=== PATIENT | male | born 1980 | race African-American/Black ===

== ENCOUNTER 2022-06-26 18:38 | Emergency (ER) | payer MEDICAID ==
[~2022-06-26] VITALS: Ht 175.3 cm; Wt 84.0 kg
[~2022-06-26 18:38] MED LIST: BENZTROPINE MESYLATE; BUSPIRONE; DEPAKOTE; DIVALPROEX; LITHIUM; RISPERDAL
[2022-06-27 01:18] LABS: BASOPHILS % 0.3 % (0.0-2.0); HEMATOCRIT. 43.4 % (42.0-52.0); HEMOGLOBIN. 14.4 g/dL (14.0-18.0); LYMPHOCYTES % 19.7 % (20.0-50.0); MEAN CORPUSCULAR HEMOGLOBIN 28.7 pg (28.0-32.0); MEAN CORPUSCULAR VOLUME 86.8 fL (80.0-94.0); MEAN PLATELET VOLUME 9.3 fl (7.4-10.4); MONOCYTES % 7.8 % (2.0-8.0); NEUTROPHILS % 72.2 % (40.0-76.0); PLATELET 220 x1000/uL (130-400); RED CELL DISTRIBUTION WIDTH 15.6 % (11.6-14.6)
[2022-06-27 01:24] LABS: CHLORIDE 101 mEq/L (98-107)
[2022-06-27 01:34] LABS: ETHANOL BLOOD 294 mg/dL
[2022-06-27] MEDS ORDERED: MIDAZOLAM HCL 2 MG/2 ML VIAL IM ONE (01:45)
[2022-06-27 05:00] VITALS: BP 156/89
== END 2022-06-27 05:45 | disposition home or self-care (01) ==
LOC: ER 18:38
DX: F10.229 Alcohol dependence with intoxication, unspecified (principal); I10 Essential (primary) hypertension; E11.9 Type 2 diabetes mellitus without complications; F20.9 Schizophrenia, unspecified; F31.9 Bipolar disorder, unspecified; F12.10 Cannabis abuse, uncomplicated; Y90.8 Blood alcohol level of 240 mg/100 ml or more
CPT/HCPCS: 36415; 70450; 80053; 80320; 85025; 96372; 99285; J2250; Z7610; G0480

== ENCOUNTER 2022-09-04 05:10 | Emergency (ER) | payer MEDICAID ==
[~2022-09-04] VITALS: Ht 170.2 cm; Wt 73.0 kg
[2022-09-04 05:12] VITALS: BP 148/98
[2022-09-04] MEDS ORDERED: IBUPROFEN 600MG TABLET PO ONE (11:45)
[2022-09-04] MEDS ORDERED: IBUP-2029 MT (11:46)
== END 2022-09-04 14:00 | disposition home or self-care (01) ==
LOC: ER 05:36
DX: S92.402A Displaced unspecified fracture of left great toe, initial encounter for closed fracture (principal); F12.10 Cannabis abuse, uncomplicated; E11.9 Type 2 diabetes mellitus without complications; I10 Essential (primary) hypertension; Z86.59 Personal history of other mental and behavioral disorders; X58.XXXA Exposure to other specified factors, initial encounter; Y93.89 Activity, other specified; Y92.89 Other specified places as the place of occurrence of the external cause; Y99.8 Other external cause status
CPT/HCPCS: 73630; 99283; Z7610

== ENCOUNTER 2022-10-30 19:51 | Emergency (ER) | payer MEDICAID ==
[~2022-10-30] VITALS: Ht 177.8 cm; Wt 100.0 kg
[~2022-10-30 19:51] MED LIST changes: +IBUP-2029 MT
[2022-10-30 19:57] VITALS: BP 153/91
[2022-10-30] MEDS ORDERED: METOPROLOL TARTRATE 100MG TABLET PO ONE (20:30)
[2022-10-30] MEDS ORDERED: OLANZAPINE 10MG TABLET PO SCH (20:30)
[2022-10-30] MEDS ORDERED: ATORVASTATIN CALCIUM 40MG TABLET PO ONE (20:30)
[2022-10-30] MEDS ORDERED: HYDROCHLOROTHIAZIDE 25MG TABLET PO ONE (20:30)
[2022-10-30] MEDS ORDERED: METFORMIN HCL 500MG TABLET PO ONE (20:30)
[2022-10-30] MEDS ORDERED: ASPIRIN 81MG EC TABLET PO ONE (20:30)
== END 2022-10-30 21:35 | disposition left against medical advice (07) ==
LOC: ER 19:51
DX: Z00.00 Encounter for general adult medical examination without abnormal findings (principal); M79.89 Other specified soft tissue disorders; F31.9 Bipolar disorder, unspecified; E11.9 Type 2 diabetes mellitus without complications; I10 Essential (primary) hypertension; F20.9 Schizophrenia, unspecified; F12.10 Cannabis abuse, uncomplicated
CPT/HCPCS: 99283

== ENCOUNTER 2023-04-01 13:24 | Emergency (ER) | payer MEDICAID ==
[~2023-04-01] VITALS: Ht 167.6 cm; Wt 85.0 kg
[2023-04-01 13:27] VITALS: O2SAT 100
[2023-04-01] MEDS ORDERED: LASIX (13:27)
[2023-04-01] MEDS ORDERED: INSULIN (13:27)
[2023-04-01] MEDS ORDERED: METFORMIN (13:27)
[2023-04-01] MEDS ORDERED: BACITRACIN ZINC OINT UDPKT TOP ONE (14:30)
[2023-04-01] MEDS ORDERED: TETANUS, DIPHTHERIA, PERTUSSIS VAC/PF 0.5ML (>10YR OLD) IM ONE (14:30)
[2023-04-01] MEDS ORDERED: LIDOCAINE HCL/PF 1% 10 MG/ML 5ML VIAL INFIL ONE (14:30)
[2023-04-01] MEDS ORDERED: TOPUD MT (16:19)
[2023-04-01] MEDS ORDERED: CEPH500T MT (16:19)
[2023-04-01 17:35] VITALS: BP 142/89; PULSE 85; RESP 18; TEMP 98.6
== END 2023-04-01 17:37 | disposition home or self-care (01) ==
LOC: ER 13:24
DX: S01.81XA Laceration without foreign body of other part of head, initial encounter (principal); F31.9 Bipolar disorder, unspecified; E11.9 Type 2 diabetes mellitus without complications; I10 Essential (primary) hypertension; F20.9 Schizophrenia, unspecified; F12.10 Cannabis abuse, uncomplicated; Z79.899 Other long term (current) drug therapy; Y08.89XA Assault by other specified means, initial encounter; Y93.89 Activity, other specified; Y92.89 Other specified places as the place of occurrence of the external cause; Y99.8 Other external cause status
CPT/HCPCS: 90715; 12013; 90471; 99283; J3490; Z7610 ×4

== ENCOUNTER 2023-12-24 08:14 | Inpatient (IN) | payer MEDICAID ==
[~2023-12-24] VITALS: Ht 162.6 cm; Wt 81.2 kg
[2023-12-24] VITALS (7 sets, daily range): BP systolic 128–161; BP diastolic 74–99; PULSE 92–98; RESP 22–45; TEMP 97.5–99.3
[~2023-12-24 08:14] MED LIST changes: +ALBU6.7H15; +ARIP10TA56 PO; +CEPH500T MT; -DEPAKOTE; +DIPH-1205 PO; +DIVA-75 PO; -DIVALPROEX; +ESCI-7 PO; +FERR-63 PO; +FURO80TA3 PO; +INSU100I28 SQ; +INSU100I28 SUBCUT; +INSULIN; +LOSA50TA41 PO; +MAGN400T7 PO; +METF-416 PO; +METO-396 PO; +OLAN10TA72 PO; +PANT40TA51 PO; +SPIR25TA6 PO; +TIOT4MIS5 IH; +TOPUD MT
[2023-12-24] MEDS: FUROSEMIDE 40MG/4ML VIAL IV ONE (09:02)
[2023-12-24] MEDS: METHYLPREDNISOLONE SOD SUCC 125MG/2ML (ACT-O-VIAL) IV STA (09:03)
[2023-12-24] MEDS: NITROGLYCERIN OINT 1GM/INCH UDPKT TD ONE (09:03)
[2023-12-24 09:19] LABS: BASOPHILS % 0.3 % (0.0-2.0); DIFFERENTIAL COMMENT 0; HEMATOCRIT. 37.7 % (42.0-52.0); LYMPHOCYTES % 7.6 % (20.0-50.0); MEAN CORPUSCULAR HEMOGLOBIN 30.8 pg (28.0-32.0); MEAN CORPUSCULAR HGB CONC 31.9 g/dL (31.0-37.0); MEAN CORPUSCULAR VOLUME 96.6 fL (80.0-94.0); MEAN PLATELET VOLUME 8.8 fl (7.4-10.4); MONOCYTES % 7.8 % (2.0-8.0); NEUTROPHILS % 84.3 % (40.0-76.0); PLATELET 198 x1000/uL (130-400); RED CELL DISTRIBUTION WIDTH 17.3 % (11.6-14.6)
[2023-12-24] MEDS: IPRATROPIUM BROMIDE (0.02%) 0.5MG/2.5ML NEB HHN STA (09:25)
[2023-12-24] MEDS: ALBUTEROL (0.083%) 2.5MG/3ML NEB HHN STA (09:26)
[2023-12-24] MEDS: LEVOFLOXACIN 750MG PREMIX 150 ML IV ONE (09:28)
[2023-12-24 09:30] LABS: INR 0.9; PROTHROMBIN TIME 10.6 sec (9.6-11.0)
[2023-12-24 09:35] LABS: CHLORIDE 102 mEq/L (98-107); SODIUM 140 mEq/L (136-145)
[2023-12-24 09:36] LABS: CARBON DIOXIDE 32 mEq/L (21-32)
[2023-12-24 09:37] LABS: CALCIUM 9.1 mg/dL (8.7-10.4)
[2023-12-24 09:41] LABS: CREATININE 0.8 mg/dL (0.6-1.3)
[2023-12-24 09:42] LABS: UREA NITROGEN BLOOD 13 mg/dL (9-23)
[2023-12-24 10:16] LABS: GLUCOSE 426 mg/dL (70-105)
[2023-12-24] MEDS: HYDRALAZINE 20MG/ML VIAL IV ONE ×2 (10:29→13:15)
[2023-12-24] MEDS: INSULIN REGULAR (HUMULIN R) 1000UNITS/10ML VIAL IV ONE (10:30)
[2023-12-24 12:02] LABS: TROPONIN I HIGH SENSITIVITY 111 ng/L (3.0-53)
[2023-12-24] MEDS: ASPIRIN 325MG EC TABLET PO ONE (12:15)
[2023-12-24] MEDS ORDERED: DEXTROSE 50% WATER 50ML SYRINGE IV PRN (14:30)
[2023-12-24] MEDS ORDERED: IPRATROPIUM/ALBUTEROL 0.5-3(2.5)MG/3ML NEB HHN PRN (16:30)
[2023-12-24] MEDS: BLOOD SUGAR DIAGNOSTIC STRIP TEST SCH (17:30)
[2023-12-24] MEDS: CLONIDINE 0.1MG TABLET PO PRN (17:52)
[2023-12-24] MEDS: METHYLPREDNISOLONE SOD SUCC 40MG/ML (ACT-O-VIAL) IV SCH (17:53)
[2023-12-24] MEDS: FUROSEMIDE 40MG/4ML VIAL IVP SCH (17:56)
[2023-12-24] MEDS ORDERED: HYDRALAZINE 20MG/ML VIAL IV NR (18:30)
[2023-12-24] MEDS: INSULIN LISPRO 100 UNITS/ML SUBCUT SCH (18:41)
[2023-12-24] MEDS: INSULIN GLARGINE 100 UNITS/ML SUBCUT SCH (21:39)
[2023-12-25] VITALS (12 sets, daily range): BP systolic 139–180; BP diastolic 84–113; PULSE 50–107; RESP 0–30; TEMP 97.8–98.8; O2SAT 93
[2023-12-25] MEDS: SPIRONOLACTONE 25MG TABLET PO SCH (08:48)
[2023-12-25] MEDS ORDERED: FUROSEMIDE 40MG/4ML VIAL IVP SCH (09:00)
[2023-12-25] MEDS: INSULIN GLARGINE 100 UNITS/ML SUBCUT SCH ×2 (10:17→22:30)
[2023-12-25] MEDS: INSULIN LISPRO 100 UNITS/ML SUBCUT SCH ×2 (12:30→13:05)
[2023-12-25 16:37] LABS: *AMPHETAMINES SCREEN URINE NEGATIVE (NEGATIVE)
[2023-12-25 16:38] LABS: *BENZODIAZEPINES SCREEN URINE NEGATIVE (NEGATIVE)
[2023-12-25 16:39] LABS: *BARBITURATES SCREEN URINE NEGATIVE (NEGATIVE); *COCAINE SCREEN URINE NEGATIVE (NEGATIVE); ECSTASY MDMA SCREEN URINE NEGATIVE (NEGATIVE); METHADONE URINE SCREEN NEGATIVE (NEGATIVE); OPIATES URINE SCREEN NEGATIVE (NEGATIVE); PHENCYCLIDINE URINE SCREEN NEGATIVE (NEGATIVE)
[2023-12-25 17:43] LABS: HEMATOCRIT. 33.5 % (42.0-52.0); HEMOGLOBIN. 10.7 g/dL (14.0-18.0); MEAN CORPUSCULAR HEMOGLOBIN 30.5 pg (28.0-32.0); MEAN CORPUSCULAR VOLUME 95.4 fL (80.0-94.0); MEAN PLATELET VOLUME 9.6 fl (7.4-10.4); PLATELET 163 x1000/uL (130-400); RED BLOOD CELL COUNT 3.51 mill/uL (4.7-6.1); RED CELL DISTRIBUTION WIDTH 17.4 % (11.6-14.6); WHITE BLOOD COUNT 9.5 x1000/uL (4.5-11.0)
[2023-12-25 17:50] LABS: DIFFERENTIAL COMMENT 1
[2023-12-25 18:00] LABS: CHLORIDE 89 mEq/L (98-107); POTASSIUM 3.7 mEq/L (3.5-5.1); SODIUM 134 mEq/L (136-145)
[2023-12-25 18:01] LABS: CALCIUM 9.1 mg/dL (8.7-10.4); CARBON DIOXIDE 35 mEq/L (21-32)
[2023-12-25 18:06] LABS: CREATININE 1.1 mg/dL (0.6-1.3); GLUCOSE 371 mg/dL (70-105); UREA NITROGEN BLOOD 22 mg/dL (9-23)
[2023-12-25 19:25] LABS: ANISOCYTOSIS 1+; PLATELET ESTIMATE NORMAL
[2023-12-25] MEDS: IPRATROPIUM/ALBUTEROL 0.5-3(2.5)MG/3ML NEB HHN SCH (21:20)
[2023-12-25] MEDS: INSULIN LISPRO 100 UNITS/ML SUBCUT NR (22:31)
[2023-12-26] VITALS (16 sets, daily range): BP systolic 132–189; BP diastolic 72–103; PULSE 48–89; RESP 0–21; TEMP 97.7–98.9; O2SAT 98–100
[2023-12-26] MEDS: INSULIN LISPRO 100 UNITS/ML SUBCUT SCH (05:44)
[2023-12-26] MEDS ORDERED: INSULIN GLARGINE 100 UNITS/ML SUBCUT SCH (10:00)
[2023-12-26] MEDS: CARVEDILOL 6.25 MG TABLET PO SCH (15:17)
[2023-12-27] VITALS (16 sets, daily range): BP systolic 102–173; BP diastolic 49–100; PULSE 52–78; RESP 16–27; TEMP 97.1–98.4; O2SAT 97–99
[2023-12-27 10:50] LABS: BASOPHILS % 0.6 % (0.0-2.0); DIFFERENTIAL COMMENT 0; HEMOGLOBIN. 11.1 g/dL (14.0-18.0); LYMPHOCYTES % 8.8 % (20.0-50.0); MEAN CORPUSCULAR HEMOGLOBIN 31.2 pg (28.0-32.0); MEAN CORPUSCULAR HGB CONC 32.6 g/dL (31.0-37.0); MEAN CORPUSCULAR VOLUME 95.5 fL (80.0-94.0); MEAN PLATELET VOLUME 9.4 fl (7.4-10.4); MONOCYTES % 14.6 % (2.0-8.0); PLATELET 186 x1000/uL (130-400); RED BLOOD CELL COUNT 3.56 mill/uL (4.7-6.1); RED CELL DISTRIBUTION WIDTH 16.9 % (11.6-14.6); WHITE BLOOD COUNT 6.7 x1000/uL (4.5-11.0)
[2023-12-27 11:03] LABS: CHLORIDE 85 mEq/L (98-107); POTASSIUM 2.9 mEq/L (3.5-5.1); SODIUM 135 mEq/L (136-145)
[2023-12-27 11:04] LABS: CALCIUM 8.7 mg/dL (8.7-10.4); CARBON DIOXIDE 39 mEq/L (21-32)
[2023-12-27 11:09] LABS: UREA NITROGEN BLOOD 19 mg/dL (9-23)
[2023-12-27] MEDS: INSULIN GLARGINE 100 UNITS/ML SUBCUT SCH (11:21)
[2023-12-27 11:23] LABS: GLUCOSE 424 mg/dL (70-105)
[2023-12-27] MEDS: POTASSIUM CHLORIDE 20MEQ TABLET SR PO NR (16:03)
[2023-12-28] VITALS (12 sets, daily range): BP systolic 130–187; BP diastolic 79–120; PULSE 46–77; RESP 15–36; TEMP 96.9–98.4; O2SAT 97
[2023-12-28] MEDS: DIVALPROEX SODIUM 500MG DR TABLET PO SCH (11:31)
[2023-12-28] MEDS: ARIPIPRAZOLE 5MG TABLET PO SCH (11:34)
[2023-12-28] MEDS: OLANZAPINE 10MG TABLET PO SCH (11:34)
[2023-12-28] MEDS: METHYLPREDNISOLONE SOD SUCC 40MG/ML (ACT-O-VIAL) IV SCH (14:22)
[2023-12-28 17:10] LABS: HEMATOCRIT. 36.3 % (42.0-52.0); HEMOGLOBIN. 11.8 g/dL (14.0-18.0); MEAN CORPUSCULAR HEMOGLOBIN 30.7 pg (28.0-32.0); MEAN CORPUSCULAR HGB CONC 32.4 g/dL (31.0-37.0); MEAN CORPUSCULAR VOLUME 94.8 fL (80.0-94.0); MEAN PLATELET VOLUME 9.2 fl (7.4-10.4); PLATELET 206 x1000/uL (130-400); RED BLOOD CELL COUNT 3.83 mill/uL (4.7-6.1); RED CELL DISTRIBUTION WIDTH 17.4 % (11.6-14.6); WHITE BLOOD COUNT 9.2 x1000/uL (4.5-11.0)
[2023-12-28 17:12] LABS: DIFFERENTIAL COMMENT 1
[2023-12-28 17:23] LABS: CHLORIDE 92 mEq/L (98-107); POTASSIUM 3.5 mEq/L (3.5-5.1); SODIUM 137 mEq/L (136-145)
[2023-12-28 17:24] LABS: CARBON DIOXIDE 34 mEq/L (21-32)
[2023-12-28 17:25] LABS: CALCIUM 8.9 mg/dL (8.7-10.4)
[2023-12-28 17:29] LABS: CREATININE 0.8 mg/dL (0.6-1.3); UREA NITROGEN BLOOD 20 mg/dL (9-23)
[2023-12-28 17:30] LABS: GLUCOSE 271 mg/dL (70-105)
[2023-12-28 17:41] LABS: PLATELET ESTIMATE NORMAL
[2023-12-28] MEDS: FUROSEMIDE 40MG TABLET PO SCH (18:09)
[2023-12-28] MEDS: INSULIN GLARGINE 100 UNITS/ML SUBCUT SCH (21:34)
[2023-12-29] VITALS (7 sets, daily range): BP systolic 138–168; BP diastolic 84–96; PULSE 47–79; RESP 0–35; TEMP 96.9–97.3; O2SAT 97
[2023-12-29] MEDS: SPIRONOLACTONE 50MG TABLET PO SCH (08:47)
[2023-12-29] MEDS: AMLODIPINE 5MG TABLET PO SCH (14:29)
[2023-12-29 17:26] LABS: HEPATITIS B SURFACE ANTIGEN NEGATIVE (Negative)
[2023-12-29] MEDS: PANTOPRAZOLE 40MG DR TABLET PO SCH (17:27)
[2023-12-29 17:48] LABS: HEPATITIS C AB NON REACTIVE (Neg) (Negative)
[2023-12-29] MEDS ORDERED: CARVEDILOL 12.5MG TABLET PO SCH (21:00)
[2023-12-29] MEDS ORDERED: DIVALPROEX SODIUM 500MG DR TABLET PO SCH (22:00)
[2023-12-30] MEDS ORDERED: PREDNISONE 20MG TABLET PO SCH (09:00)
== END 2023-12-29 20:25 | disposition left against medical advice (07) | DRG 194 ==
LOC: ER 08:29 → 5EST 12:49
PROVIDERS: ADMIT Internal Medicine; ATTEND Internal Medicine
PROC: 5A09357 Assistance with Respiratory Ventilation, Less than 24 Consecutive Hours, Continuous Positive Airway Pressure (ICD-10-PCS; principal; 2023-12-24)
DX: I11.0 Hypertensive heart disease with heart failure (principal); J96.21 Acute and chronic respiratory failure with hypoxia; I21.4 Non-ST elevation (NSTEMI) myocardial infarction; I50.33 Acute on chronic diastolic (congestive) heart failure; J44.1 Chronic obstructive pulmonary disease with (acute) exacerbation; E11.9 Type 2 diabetes mellitus without complications; Z99.81 Dependence on supplemental oxygen; F20.9 Schizophrenia, unspecified; F31.9 Bipolar disorder, unspecified; E66.9 Obesity, unspecified; Z68.30 Body mass index [BMI] 30.0-30.9, adult; I16.0 Hypertensive urgency; Z20.822 Contact with and (suspected) exposure to COVID-19; L02.416 Cutaneous abscess of left lower limb; E87.6 Hypokalemia; F17.210 Nicotine dependence, cigarettes, uncomplicated; Z53.29 Procedure and treatment not carried out because of patient's decision for other reasons; Z59.01 Sheltered homelessness; Z79.899 Other long term (current) drug therapy; Z91.148 Patient's other noncompliance with medication regimen for other reason; Z79.84 Long term (current) use of oral hypoglycemic drugs; Z79.4 Long term (current) use of insulin
CPT/HCPCS: 36415; 71045; 76881; 80048; 80305; 82962; 83036; 83880; 84484; 85025; 86705; 87340; 87426; 93005; 93306; 93970; 94640; 94660; 99285; C1893; J0360; J1815; J1940; J1956; J2919; J2920

== ENCOUNTER 2024-05-18 19:31 | Emergency (ER) | payer MEDICAID ==
[~2024-05-18] VITALS: Ht 177.8 cm; Wt 80.0 kg
[~2024-05-18 19:31] MED LIST changes: -ALBU6.7H15; +AMLO10TA80 PO; +ASPI-1160 PO; -BENZTROPINE MESYLATE; -BUSPIRONE; -CEPH500T MT; -DIPH-1205 PO; -ESCI-7 PO; -FERR-63 PO; -FURO80TA3 PO; -IBUP-2029 MT; +INSLIS SUBCUT; -INSU100I28 SQ; -INSU100I28 SUBCUT; -INSULIN; +LANTUSUD SUBCUT; -LITHIUM; +LOSA100T33 PO; -LOSA50TA41 PO; -MAGN400T7 PO; -METF-416 PO; -METO-396 PO; -PANT40TA51 PO; -RISPERDAL; -SPIR25TA6 PO; -TIOT4MIS5 IH; -TOPUD MT
[2024-05-18 19:37] VITALS: O2SAT 100
[2024-05-18 23:34] VITALS: BP 131/80; PULSE 79; RESP 18; TEMP 36.66960; O2SAT 100
== END 2024-05-18 23:33 | disposition home or self-care (01) ==
LOC: ER 19:31
DX: R68.89 Other general symptoms and signs (principal); Z59.01 Sheltered homelessness; J44.9 Chronic obstructive pulmonary disease, unspecified; I11.0 Hypertensive heart disease with heart failure; I50.9 Heart failure, unspecified; F31.9 Bipolar disorder, unspecified; F12.10 Cannabis abuse, uncomplicated; F20.9 Schizophrenia, unspecified; E11.9 Type 2 diabetes mellitus without complications; Z79.82 Long term (current) use of aspirin; Z79.899 Other long term (current) drug therapy
CPT/HCPCS: 71045; 93005; 99283

== ENCOUNTER 2024-06-12 23:29 | Emergency (ER) | payer MEDICAID, OTHER ==
[~2024-06-12] VITALS: Ht 160 cm; Wt 82.0 kg
[~2024-06-12 23:29] MED LIST changes: -ARIP10TA56 PO; +ARIP10TA86 PO
[2024-06-12 23:31] VITALS: BP 170/109; PULSE 71; RESP 18; TEMP 97.9; O2SAT 99
[2024-06-13 02:45] LABS: CHLORIDE 106 mEq/L (98-107); POTASSIUM 3.8 mEq/L (3.5-5.1); SODIUM 143 mEq/L (136-145)
[2024-06-13 02:46] LABS: CALCIUM 8.5 mg/dL (8.7-10.4); CARBON DIOXIDE 32 mEq/L (21-32)
[2024-06-13 02:48] LABS: BASOPHILS % 0.6 % (0.0-2.0); EOSINOPHILS % 0.1 % (0.0-5.0); HEMATOCRIT. 39.7 % (42.0-52.0); HEMOGLOBIN. 12.7 g/dL (14.0-18.0); LYMPHOCYTES % 12.8 % (20.0-50.0); MEAN CORPUSCULAR HEMOGLOBIN 29.2 pg (28.0-32.0); MEAN CORPUSCULAR VOLUME 91.4 fL (80.0-94.0); MEAN PLATELET VOLUME 9.3 fl (7.4-10.4); MONOCYTES % 12.4 % (2.0-8.0); NEUTROPHILS % 74.1 % (40.0-76.0); PLATELET 225 x1000/uL (130-400); RED BLOOD CELL COUNT 4.34 mill/uL (4.7-6.1); RED CELL DISTRIBUTION WIDTH 18.8 % (11.6-14.6); WHITE BLOOD COUNT 5.3 x1000/uL (4.5-11.0)
[2024-06-13 02:51] LABS: CREATININE 0.6 mg/dL (0.6-1.3); UREA NITROGEN BLOOD 7 mg/dL (9-23)
[2024-06-13 02:52] LABS: TROPONIN I HIGH SENSITIVITY 29 ng/L (3.0-53)
[2024-06-13 03:06] LABS: ETHANOL BLOOD < 10 mg/dL (<10); GLUCOSE 208 mg/dL (70-105)
[2024-06-13] MEDS: ASPIRIN 81MG TABLET PO ONE (03:33)
== END 2024-06-13 04:15 | disposition left against medical advice (07) ==
LOC: ER 23:29
DX: R55 Syncope and collapse (principal); R53.1 Weakness; I48.91 Unspecified atrial fibrillation; J44.9 Chronic obstructive pulmonary disease, unspecified; I11.0 Hypertensive heart disease with heart failure; I50.9 Heart failure, unspecified; F20.9 Schizophrenia, unspecified; I12.0 Hypertensive chronic kidney disease with stage 5 chronic kidney disease or end stage renal disease; E11.22 Type 2 diabetes mellitus with diabetic chronic kidney disease; N18.6 End stage renal disease; F12.10 Cannabis abuse, uncomplicated; F31.9 Bipolar disorder, unspecified; Z99.2 Dependence on renal dialysis; Z79.899 Other long term (current) drug therapy; Z79.82 Long term (current) use of aspirin
CPT/HCPCS: 36415; 71045; 93005; 99285; 80048; 80320; 83880; 85025; 84484; 70450; Z7610 ×3; G0480

== ENCOUNTER 2024-06-21 01:42 | Emergency (ER) | payer OTHER ==
[~2024-06-21] VITALS: Ht 162.6 cm; Wt 73.0 kg
[2024-06-21 01:58] VITALS: O2SAT 98
[2024-06-21] MEDS: ACETAMINOPHEN 325MG TABLET PO ONE (02:33)
[2024-06-21 03:58] LABS: BASOPHILS % 0.8 % (0.0-2.0); EOSINOPHILS % 0.4 % (0.0-5.0); HEMOGLOBIN. 14.3 g/dL (14.0-18.0); LYMPHOCYTES % 17.5 % (20.0-50.0); MEAN CORPUSCULAR HEMOGLOBIN 28.6 pg (28.0-32.0); MEAN CORPUSCULAR HGB CONC 31.2 g/dL (31.0-37.0); MEAN CORPUSCULAR VOLUME 91.6 fL (80.0-94.0); MONOCYTES % 12.1 % (2.0-8.0); NEUTROPHILS % 69.2 % (40.0-76.0); PLATELET 225 x1000/uL (130-400); RED BLOOD CELL COUNT 5.02 mill/uL (4.7-6.1); RED CELL DISTRIBUTION WIDTH 18.9 % (11.6-14.6); WHITE BLOOD COUNT 4.6 x1000/uL (4.5-11.0)
[2024-06-21 04:02] LABS: CHLORIDE 105 mEq/L (98-107); POTASSIUM 3.8 mEq/L (3.5-5.1); SODIUM 143 mEq/L (136-145)
[2024-06-21 04:03] LABS: CALCIUM 9.6 mg/dL (8.7-10.4); CARBON DIOXIDE 30 mEq/L (21-32)
[2024-06-21 04:08] LABS: CREATININE 0.8 mg/dL (0.6-1.3); GLUCOSE 98 mg/dL (70-105); UREA NITROGEN BLOOD 6 mg/dL (9-23)
[2024-06-21 05:28] VITALS: BP 161/90; PULSE 80; RESP 16; TEMP 36.72516; O2SAT 98
== END 2024-06-21 05:28 | disposition home or self-care (01) ==
LOC: ER 01:42
DX: M79.10 Myalgia, unspecified site (principal); E11.9 Type 2 diabetes mellitus without complications; F20.9 Schizophrenia, unspecified; I10 Essential (primary) hypertension; F12.90 Cannabis use, unspecified, uncomplicated; Z79.899 Other long term (current) drug therapy
CPT/HCPCS: 36415; 80048; 85025; 99283

== ENCOUNTER 2024-07-16 11:31 | Emergency (ER) | payer OTHER ==
[~2024-07-16] VITALS: Ht 175.3 cm; Wt 100.0 kg
[2024-07-16 11:43] VITALS: BP 102/61; PULSE 105; RESP 18; TEMP 98.5; O2SAT 98
[2024-07-16] MEDS: INSULIN REGULAR (HUMULIN R) 1000UNITS/10ML VIAL SUBCUT ONE (13:12)
[2024-07-16 13:13] LABS: CHLORIDE 99 mEq/L (98-107); HEMATOCRIT. 44.6 % (42.0-52.0); HEMOGLOBIN. 13.8 g/dL (14.0-18.0); MEAN CORPUSCULAR HEMOGLOBIN 28.7 pg (28.0-32.0); MEAN CORPUSCULAR VOLUME 92.5 fL (80.0-94.0); MEAN PLATELET VOLUME 9.8 fl (7.4-10.4); PLATELET 244 x1000/uL (130-400); POTASSIUM 3.6 mEq/L (3.5-5.1); RED BLOOD CELL COUNT 4.82 mill/uL (4.7-6.1); RED CELL DISTRIBUTION WIDTH 17.5 % (11.6-14.6); SODIUM 140 mEq/L (136-145); WHITE BLOOD COUNT 7.6 x1000/uL (4.5-11.0)
[2024-07-16 13:14] LABS: CARBON DIOXIDE 27 mEq/L (21-32)
[2024-07-16 13:15] LABS: CALCIUM 9.6 mg/dL (8.7-10.4)
[2024-07-16 13:19] LABS: CREATININE 1.3 mg/dL (0.6-1.3)
[2024-07-16 13:20] LABS: UREA NITROGEN BLOOD 23 mg/dL (9-23)
[2024-07-16 13:21] LABS: ALANINE AMINOTRANSFERASE 42 IU/L (10-49); ALBUMIN 4.2 g/dL (3.2-4.8); ASPARTATE AMINOTRANSFERASE 23 IU/L (<34)
[2024-07-16 13:22] LABS: BILIRUBIN TOTAL 0.3 mg/dL (0.1-1.0); DIFFERENTIAL COMMENT 1; PROTEIN TOTAL 7.3 g/dL (6.0-8.3); TROPONIN I HIGH SENSITIVITY 36 ng/L (3.0-53)
[2024-07-16 13:58] LABS: GLUCOSE 503 mg/dL (70-105)
[2024-07-16 13:59] LABS: BILIRUBIN DIRECT < 0.1 mg/dL (<=3.0)
[2024-07-16 14:33] LABS: BETA HYDROXYBUTYRATE 0.2 mMol/L (0.0-0.3)
[2024-07-16 14:35] LABS: ANISOCYTOSIS 1+; PLATELET ESTIMATE NORMAL
== END 2024-07-16 13:03 | disposition left against medical advice (07) ==
LOC: ER 11:43
DX: R53.1 Weakness (principal); I10 Essential (primary) hypertension; E11.65 Type 2 diabetes mellitus with hyperglycemia; F20.9 Schizophrenia, unspecified; F12.90 Cannabis use, unspecified, uncomplicated; Z79.899 Other long term (current) drug therapy; Z79.82 Long term (current) use of aspirin
CPT/HCPCS: 99283; 80076; 80048; 82010; 82962; 85025; 84484; 36415; 96372; J1815